=== PATIENT | male | born 1970 | race Caucasian/White ===

== ENCOUNTER 2021-06-24 19:57 | Inpatient (IN) | payer OTHER ==
[~2021-06-24] VITALS: Ht 172.7 cm; Wt 84.4 kg
[2021-06-24] MEDS ORDERED: ONDANSETRON HCL/PF 4 MG/2 ML VIAL ONE ×2 (20:20→22:55)
--- NOTE | 2021-06-24 20:20 | NUR ---
PT BIBRA C/O ETOH AND VOMITTING. PT AAOX4 BREATHING EVENLY AND UNLABORED. PT ATTACHED TO MONITOR AND POX. PT GIVEN BLANKET AND CALL LIGHT WITHIN REACH
[2021-06-24] MEDS ORDERED: ONDANSETRON HCL/PF 4 MG/2 ML VIAL IVP ONE (20:30)
[2021-06-24] MEDS ORDERED: IV NS 0.9% 1,000 ML BAG IV ONE (20:30)
[2021-06-24 20:40] LABS: BASOPHILS # (AUTO) 0.1 K/uL (0.0-0.2); BASOPHILS % (AUTO) 0.5 % (0.0-2.0); HEMATOCRIT 44 % (39-51); HEMOGLOBIN 14.5 g/dL (13.5-17.5); LYMPHOCYTES # (AUTO) 1.7 K/uL (0.8-4.8); LYMPHOCYTES % (AUTO) 13.3 % (20.0-44.0); MEAN CORPUSCULAR HGB CONC 33 g/dl (31.0-36.0); MEAN CORPUSCULAR VOLUME 86 fL (80-96); MONOCYTES # (AUTO) 0.4 K/uL (0.1-1.30); MONOCYTES % (AUTO) 3.4 % (2.0-12.0); NEUTROPHILS # (AUTO) 10.8 K/uL (1.8-8.9); NEUTROPHILS % (AUTO) 82.8 % (43.0-81.0); PLATELET COUNT (AUTO) 494 K/uL (150-450)
[2021-06-24] MEDS ORDERED: ONDA4TAB11 PO (20:55)
[2021-06-24 20:57] LABS: CALCIUM, SERUM 9.1 mg/dL (8.5-10.1); CARBON DIOXIDE 18 mmol/L (21-32); CHLORIDE 98 mmol/L (98-107); CREATININE 1.7 mg/dL (0.6-1.3); GLUCOSE 112 mg/dL (74-106); POTASSIUM 4.6 mmol/L (3.5-5.1); SODIUM SERUM 142 mmol/L (136-145); UREA NITROGEN, BLOOD 24 mg/dL (7-18)
[2021-06-24 21:08] LABS: ALANINE AMINOTRANSFERASE 32 U/L (12-78); ALBUMIN 3.9 g/dL (3.4-5.0); ALKALINE PHOSPHATASE 96 U/L (46-116); ASPARTATE AMINOTRANSFERASE 26 U/L (15-37); BILIRUBIN,DIRECT 0.1 mg/dL (0.0-0.2); BILIRUBIN,TOTAL 0.5 mg/dL (0.2-1.0); LIPASE 125 U/L (73-393); TOTAL PROTEIN, SERUM 7.9 g/dL (6.4-8.2)
--- NOTE | 2021-06-24 21:09 | NUR ---
CRITICAL LAB : LACTIC ACID 11.6. AWARE
--- NOTE | 2021-06-24 21:22 | NUR ---
COVID ANTIGEN, URINE COLLECTED AND SENT TO LAB. FAMILY PRACTICE MD AT PT'S BEDSIDE
--- NOTE | 2021-06-24 21:22 | NUR ---
LAB AT BEDSIDE
[2021-06-24] MEDS ORDERED: IV NS 0.9% 1,000 ML IV ONE (21:30)
--- NOTE | 2021-06-24 21:38 | NUR ---
DEVON/OUSMANE (COUSINS) [phone]
--- NOTE | 2021-06-24 22:10 | NUR ---
LACTIC ACID 9.4
[2021-06-24 22:31] LABS: BILIRUBIN,URINE NEGATIVE (NEGATIVE); COLOR,URINE YELLOW (YELLOW); LEUKOCYTE ESTERASE ,URINE NEGATIVE (NEGATIVE); NITRITE, URINE NEGATIVE (NEGATIVE); PH,URINE 5.5 (5.0-8.0); PROTEIN,URINE 30 mg/dl (NEGATIVE); UGLUCOSE NEGATIVE (NEGATIVE); UROBILINOGEN,URINE 0.2 EU/dL (0.2)
--- NOTE | 2021-06-24 22:54 | NUR ---
global mobility specialist sailaja verbal order 4mg zofran iv
[2021-06-25] MEDS ORDERED: Z GUARD REMEDY 4 OZ OINT TP PRN
[2021-06-25] MEDS ORDERED: ONDANSETRON HCL/PF 4 MG/2 ML VIAL IVP PRN
[2021-06-25] MEDS ORDERED: MAGNESIUM HYDROXIDE 30 ML UDC PO PRN
[2021-06-25] MEDS ORDERED: METOCLOPRAMIDE HCL 10 MG/2 ML VIAL IV PRN
[2021-06-25] MEDS ORDERED: MAG HYDROX/AL HYDROX/SIMETH 30 ML UDC PO PRN
[2021-06-25] MEDS ORDERED: FOLIC ACID 1 MG TABLET PO ONE
--- NOTE | 2021-06-25 00:01 | NUR ---
vikram 106
--- NOTE | 2021-06-25 00:43 | NUR ---
REPROT GIVEN TO ERIK ROMANO
[2021-06-25 01:00] VITALS: BP 133/83
[2021-06-25] MEDS ORDERED: IV NS 0.9% 1,000 ML IV ONE (01:00)
[2021-06-25] MEDS ORDERED: Potassium Chloride 40 MEQ in IV NS 0.9% 1,000 ML IV PRN (01:00)
--- NOTE | 2021-06-25 01:05 | NUR ---
PATIENT TRANSFERRED UNDER ACLS
--- NOTE | 2021-06-25 01:10 | NUR ---
RN NOTE ADMITTED A 50 YEAR OLD MALE FROM ER. PATIENT IS ALERT AND ORIENTED X4. ABLE TO MAKE NEEDS KNOWN. BREATHING EVEN AND UNLABORED. NO SOB NOTED. TOLERATING ROOM AIR. PATIENT NOTED WITH SHIVERING. SKIN IS WARM AND DRY TO TOUCH. ON TELE MONITORING, SINUS RHYTHM >160 BPM. PROVIDED WITH WARM BLANKETS. PROVIDED WITH URINAL AT BEDSIDE. SKIN ASSESSMENT DONE. WILL CONTINUE TO MONITOR.
[2021-06-25] MEDS ORDERED: Potassium Chloride 40 MEQ in IV D5W 1,000 ML IV PRN (01:11)
[2021-06-25] MEDS: LORAZEPAM INJ 2 MG/ML VIAL IV PRN ×2 (01:13→08:45)
[2021-06-25] MEDS ORDERED: Potassium Chloride 40 MEQ in IV D5/0.45 NACL 1,000 ML IV PRN (01:25)
[2021-06-25] MEDS ORDERED: IV PREMIX D5 1/2NS + KCL 1,000 ML IV ONE (01:30)
[2021-06-25] MEDS: ACETAMINOPHEN 325 MG TABLET PO PRN (02:26)
--- NOTE | 2021-06-25 03:36 | NUR ---
RN NOTE NOTED PATIENT EXPERIENCING GENERALIZED SHAKINESS AND FINGER TIP TREMORS.ELEVATED HEART RATE ON MONITOR WELL. ADMINISTERED ATIVAN 2MG PRN PER MD ORDER. SHAKINESS DISAPPEARED. PATIENT ALSO GIVEN MAALOX FOR DYSPEPSIA. WILL CONTINUE TO MONITOR.
[2021-06-25] MEDS ORDERED: MENTHOL/CETYLPYRD (CEPACOL) 1 LOZ LOZENGE ONE ×3 (04:32→19:44)
[2021-06-25] MEDS: MENTHOL/CETYLPYRD (CEPACOL) 1 LOZ LOZENGE PO PRN ×5 (04:34→22:27)
--- NOTE | 2021-06-25 04:50 | NUR ---
RN NOTE PATIENT COMPLAINING OF THROAT IRRITATION WHEN SWALLOWING. NO COUGH. INFORMED MD REGISTERED NURSE MATERNITY, MARY. NEW ORDER OF CEPACOL LOZENGE. NOTED AND CARRIED OUT. WILL CONTINUE TO MONITOR.
[2021-06-25 05:00] VITALS: BP 143/75
[2021-06-25 06:15] LABS: BASOPHILS % (AUTO) 0.3 % (0.0-2.0); CALCIUM, SERUM 8.2 mg/dL (8.5-10.1); CREATININE 1.1 mg/dL (0.6-1.3); HEMATOCRIT 33 % (39-51); HEMOGLOBIN 11.1 g/dL (13.5-17.5); LYMPHOCYTES % (AUTO) 17.8 % (20.0-44.0); MEAN CORPUSCULAR HGB CONC 34 g/dl (31.0-36.0); MEAN CORPUSCULAR VOLUME 85 fL (80-96); MONOCYTES # (AUTO) 0.9 K/uL (0.1-1.30); MONOCYTES % (AUTO) 7.9 % (2.0-12.0); NEUTROPHILS # (AUTO) 8.3 K/uL (1.8-8.9); PLATELET COUNT (AUTO) 356 K/uL (150-450); POTASSIUM 4.8 mmol/L (3.5-5.1); RED BLOOD CELL COUNT(AUTO) 3.89 MIL/uL (4.5-6.0); WHITE BLOOD COUNT (AUTO) 11.2 K/uL (4.3-11.0)
[2021-06-25 06:20] LABS: PHOSPHORUS 2.9 mg/dL (2.5-4.9)
[2021-06-25 06:26] LABS: THYROID STIMULATING HORMONE 0.27 uIU/mL (0.358-3.74)
[2021-06-25 06:55] LABS: BACTERIA,URINE None seen /HPF (None Seen); HYALINE CASTS, URINE Rare /LPF (None Seen); RBC,URINE 0-2 /HPF (0-2); SQUAMOUS EPITHELIAL CELL,UR Rare /HPF (None Seen); WBC,URINE NONE SEEN /HPF (0-3)
--- NOTE | 2021-06-25 07:30 | NUR ---
RN OPENING NOTE PT RESTING IN BED. PATIENT IS ALERT AND ORIENTED X4. ABLE TO MAKE NEEDS KNOWN. BREATHING EVEN AND UNLABORED. NO SOB NOTED. TOLERATING ROOM AIR. ON TELE MONITORING, SINUS RHYTHM 95 BPM. PT HAS RAC PIV PATENT AND INTACT RUNNING D5W1/2NS 40 MEQ K+ @ 75ML/HR. ALL SAFETY MEASURES NOTED AND ACCOUNTED FOR. BED IN LOWEST POSITION AND WHEELS LOCKED IN PLACE. PT CALL LIGHT WITHIN REACH. WILL CONTINUE TO MONITOR.
[2021-06-25] MEDS: MULTIPLE VIT (LYCOPENE/FA/MV,CA,IRON,MIN/LUT)1 TAB PO SCH (08:18)
[2021-06-25 09:00] VITALS: BP 142/89
[2021-06-25] MEDS ORDERED: PANTOPRAZOLE 40 MG VIAL IV SCH (09:00)
[2021-06-25 13:00] VITALS: BP 151/98
[2021-06-25] MEDS: IV NS 0.9% 1,000 ML IV SCH (15:57)
[2021-06-25 17:00] VITALS: BP 152/90
--- NOTE | 2021-06-25 18:43 | NUR ---
RN CLOSING NOTE PT REMAINED STABLE THROUGHOUT SHIFT. PT RESTING IN BED. PATIENT IS ALERT AND ORIENTED X4. ABLE TO MAKE NEEDS KNOWN. BREATHING EVEN AND UNLABORED. NO SOB NOTED. TOLERATING ROOM AIR. ON TELE MONITORING, SINUS RHYTHM 90'S. PT HAS RAC PIV PATENT AND INTACT RUNNING NS@100 ML/HR. ALL SAFETY MEASURES NOTED AND ACCOUNTED FOR. BED IN LOWEST POSITION AND WHEELS LOCKED IN PLACE. PT CALL LIGHT WITHIN REACH. WILL ENDORSE TONIGHT SHIFT RN.
--- NOTE | 2021-06-25 19:30 | NUR ---
RN NOTE RECEIVED PATIENT IN BED, SLEEPING, AROUSABLE TO NAME AND TOUCH. ABLE TO MAKE NEEDS KNOWN. BREATHING EVEN AND UNLABORED. ON ROOM AIR. DENIES SOB. ON TELE MONITORING. DENIES CHEST PAIN. SKIN WARM AND DRY. RIGHT FOREARM 20G PERIPHERAL IV INFUSING NS AT 100 CC/HR. NO INFILTRATION. PATIENT IS AMBULATORY. DISCUSSED WITH PATIENT PLAN OF CARE FOR TONIGHT. ALL BELONGINGS WITHIN REACH. URINAL AT BEDSIDE. BED LOW IN LOCKED POSITION, CALL LIGHT WITHIN REACH.
--- NOTE | 2021-06-25 19:46 | NUR ---
RN NOTE PATIENT COMPLAINING OF THROAT IRRITATION WHEN SWALLOWING. REQUESTING FOR SORE THROAT MEDICATION. NO COUGH. ADMINISTERED CEPACOL PRN PER MD ORDER. WILL CONTINUE TO MONITOR.
[2021-06-25 21:00] VITALS: BP 157/103
[2021-06-26] MEDS: ACETAMINOPHEN 325 MG TABLET PO PRN ×2 (00:37→09:29)
[2021-06-26] MEDS: MENTHOL/CETYLPYRD (CEPACOL) 1 LOZ LOZENGE PO PRN (00:37)
[2021-06-26 01:00] VITALS: BP 155/93
--- NOTE | 2021-06-26 01:00 | NUR ---
RN NOTE PATIENT REQUEST FOR TYLENOL FOR HEADACHE. ADMINISTERED TYLENOL 650 MG PER MD ORDER.
[2021-06-26] MEDS: IV NS 0.9% 1,000 ML IV SCH (01:10)
[2021-06-26 05:00] VITALS: BP 145/99
[2021-06-26 07:11] LABS: BASOPHILS % (AUTO) 0.5 % (0.0-2.0); EOSINOPHILS % (AUTO) 0.7 % (0.0-6.0); HEMATOCRIT 36 % (39-51); LYMPHOCYTES # (AUTO) 1.7 K/uL (0.8-4.8); LYMPHOCYTES % (AUTO) 27.4 % (20.0-44.0); MEAN CORPUSCULAR HGB CONC 33 g/dl (31.0-36.0); MEAN CORPUSCULAR VOLUME 86 fL (80-96); MONOCYTES # (AUTO) 0.5 K/uL (0.1-1.30); MONOCYTES % (AUTO) 8.5 % (2.0-12.0); NEUTROPHILS # (AUTO) 3.9 K/uL (1.8-8.9); NEUTROPHILS % (AUTO) 62.9 % (43.0-81.0); PLATELET COUNT (AUTO) 305 K/uL (150-450); RED BLOOD CELL COUNT(AUTO) 4.16 MIL/uL (4.5-6.0); WHITE BLOOD COUNT (AUTO) 6.1 K/uL (4.3-11.0)
[2021-06-26 07:19] LABS: CALCIUM, SERUM 8.2 mg/dL (8.5-10.1); POTASSIUM 3.7 mmol/L (3.5-5.1)
--- NOTE | 2021-06-26 07:30 | NUR ---
RN OPENING NOTE PT RESTING IN BED. PATIENT IS ALERT AND ORIENTED X4. ABLE TO MAKE NEEDS KNOWN. BREATHING EVEN AND UNLABORED. NO SOB NOTED. TOLERATING ROOM AIR. ON TELE MONITORING, SINUS RHYTHM 90'S. PT HAS RAC PIV PATENT AND INTACT RUNNING NS@100 ML/HR. ALL SAFETY MEASURES NOTED AND ACCOUNTED FOR. BED IN LOWEST POSITION AND WHEELS LOCKED IN PLACE. PT CALL LIGHT WITHIN REACH. WILL CONTINUE TO MONITOR.
[2021-06-26 09:00] VITALS: BP 146/99
[2021-06-26] MEDS ORDERED: PANTOPRAZOLE 40 MG TABLET.DR PO SCH (09:00)
[2021-06-26] MEDS: MULTIPLE VIT (LYCOPENE/FA/MV,CA,IRON,MIN/LUT)1 TAB PO SCH (09:29)
--- NOTE | 2021-06-26 10:20 | NUR ---
SS Note: Pt. Is a 50-year-old White male who demonstrates adequate insight to the reason for hospitalization. Per pt., he does not recall how he got to the hospital. Pt. was oriented x4, alert, and cooperative. During interview, pt. was capable of following directions and appeared groomed. Pt.s speech was at a normal rate and pt.s mood was elevated. Pt. reported no hx of mental health, denies suicidal ideation, or homicidal ideation. Pt. denies auditory hallucinations, visual hallucinations, paranoia, or delusions. Per pt., he has been drinking alcohol for many years. 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 SW explored pt.s living situation. Per pt., he lives with his [[address] [place] [address]]. His is currently out of town so pt.s parents will be picking him up. SW suggested rehab but pt. rejects. Per pt., he wants to speak with his primary doctor regarding options. Plan: SW provided available resources and pt. accepted. Pt. rejects rehab facilities. Pt. stated that he wants to go home and speak with his primary doctor. Pt.s parents will be picking pt. up upon discharge. Resources Provided: Counseling--Outpatient [facility] [address] [facility] [address] (Specializes in in-depth psychotherapy for emotional distress: anxiety, depression, interpersonal conflicts, life transitions, childhood abuse) [facility] [address] [place] [address] (Assist with solving problem marital difficulties, separation & divorce, aging parents, & grief, chronic & terminal illness) [facility] [address] [place] [address] (Deal with loss & grief, anxiety, marital difficulties) [facility] [address], [address] [place], [place] [id number] (Provide in-home mental services to people who are incapable of leaving their homes) [facility] [address] [place] [address] [facility] [address] [place] [address] PSYCHIATRIC OUTPATIENT SERVICES [facility] Partial Hospitalization and Intensive Outpatient Program (Managed Care and [place] Only)[address] [facility] [phone] [facility] Partial Hospitalization and Outpatient [id number] [place], [place] [phone] [facility] [id number] [facility] [place], [place] [phone] [facility] Partial Hospitalization and Outpatient [id number] [facility] Miguel, [phone] Substance Abuse resources provided included: [facility] Substance Abuse Self-Helpline ([facility]) ; [facility] [address] [facility]. [place] [id number] ; [facility] [address] [facility] [address] ; [facility] Rehabilitation Program [address] [facility] [phone] ; [facility] [address] [address] ; [facility] [address] [facility] [address] ; [facility] [address] [facility] [address] ; [facility]pl[facility] ; [facility] ; [facility] [place]; [facility] [employer]; [facility] [place]; [facility]; [facility] [place]; [facility] [place]; [facility] [place]; [facility], [facility]. [facility]; Alcoholics Anonymous [facility]; Eo[facility] ; Marijuana Anonymous [facility]; Narcotics Anonymous www.na.org;
--- NOTE | 2021-06-26 10:37 | NUR ---
INSTRUMENT AND ELECTRICAL TECHNICIAN NOTE PT STABLE FOR DC PER MD ORDER. PATIENT IS ALERT AND ORIENTED X4. ABLE TO MAKE NEEDS KNOWN. BREATHING EVEN AND UNLABORED. NO SOB NOTED. TOLERATING ROOM AIR. ON TELE MONITORING, SINUS RHYTHM 90'S. REMOVED RAC PIV INTACT. PT VERBALLY CONFIRMED UNDERSTANDING OF PLAN OF CARE AND DISCHARGE ORDERS BY MD. PT RECEIVED ALL BELONGINGS AND HAD CONFIRMED PICKUP BY FAMILY MEMBER.PT DISCHARGED IN STABLE CONDITION.
== END 2021-06-26 10:34 | disposition home or self-care (01) | DRG 896 ==
LOC: ER 20:04 → TELE-TD 06-25 00:36 → TELE1 06-25 11:39
PROVIDERS: ADMIT Registered Nurse; ATTEND Nurse Practitioner Acute Care
DX: F10.129 Alcohol abuse with intoxication, unspecified (principal); N17.0 Acute kidney failure with tubular necrosis; G92.9 Unspecified toxic encephalopathy; E87.2 Acidosis; E86.0 Dehydration; Y90.7 Blood alcohol level of 200-239 mg/100 ml; D72.829 Elevated white blood cell count, unspecified
CPT/HCPCS: 36415; 71045-TC; 80048-TC; 80061-TC; 80076-TC; 81001; 82140-TC; 83605-TC; 83690-TC; 83735-TC; 84100-TC; 84443-TC; 85025-TC; 87081-TC; C9113; C9803; G0378; G0480; J2060; J2405; J3480; J3490; J7030; J7070